=== PATIENT | male | born 1975 | race African-American/Black ===

== ENCOUNTER 2020-05-06 14:13 | Emergency (ER) | payer OTHER, SELFPAY ==
[2020-05-06] VITALS (12 sets, daily range): BP systolic 154–177; BP diastolic 82–96; PULSE 74–102; RESP 18–33; TEMP 36.6; O2SAT 97–100; BMI 25.8
--- NOTE | 2020-05-06 14:48 | DI.CT.S_ITS ---
PROCEDURE: CT ANGIO HEAD AND NECK INDICATIONS: Headache/syncope TECHNIQUE: Pre-contrast 4.5 mm thick sections acquired from the foramen magnum to the vertex. After the administration of intravenous contrast, 1 mm thick sections acquired from the aortic arch through the [place] of [place]. Post-contrast 4.5 mm thick sections then re-acquired from the foramen magnum to the vertex. 3-dimensional aissttl-rcjsgmjod-miukosibij (MIP) and/or volume rendering reformats were acquired of the central intracranial vasculature and neck separately. COMPARISON: [facility], CT, CT CERVICAL SPINE WO CON, 05/06/2020, 15:28. FINDINGS: Image quality: Excellent. BRAIN: CSF spaces: Ventricles are normal in size and shape. Basal cisterns are patent. No extra-axial fluid collections. Brain: No midline shift. No intracranial bleeds or masses. Arnold-white matter interface appears intact. Skull and face: Calvarium and facial bones appear intact, without suspicious lesions. Orbits appear normal. Sinuses: There is moderate mucosal thickening seen involving the left maxillary sinus. Mild mucosal thickening is seen elsewhere within the paranasal sinuses. No abnormal fluid is seen within the mastoid air cells. HEAD CT ANGIOGRAPHY: Anterior circulation: Premature atherosclerotic calcification can be seen involving the intracranial internal carotid arteries. No [place], hemodynamically significant stenosis is seen, however. The flow within the paired anterior cerebral arteries is normal and symmetric. The flow within the middle cerebral arteries is normal and symmetric. The anterior communicating artery is seen. No aneurysms are seen. Posterior circulation: Visualized portions of the vertebral arteries demonstrate normal caliber, and join to form a normal appearing basilar artery. Flow within the posterior cerebral arteries is normal and symmetric. No aneurysms are seen. NECK CT ANGIOGRAPHY: Carotid system: The great vessels demonstrate a conventional anatomy as they arise from the aortic arch. The origins of the common carotid arteries appear patent. The common carotid arteries demonstrate normal caliber and courses. The bifurcation regions demonstrate premature atherosclerotic calcification. There is approximate 50% narrowing seen involving both proximal internal carotid arteries. Posterior circulation: The origins of the vertebral arteries both appear widely patent. The more superior extracranial portions of both vertebral arteries also demonstrate normal courses and calibers. They join to form a normal appearing basilar artery. Soft tissues: Visualized neck soft tissues demonstrate no suspicious abnormalities. Emphysematous changes are seen at the lung apices, subpleural bleb formation. Bones: No suspicious bony lesions. Visualized cervical spine appears normally aligned. IMPRESSION: No significant intracranial arterial abnormality is seen. Approximately 50% narrowing seen involving both proximal internal carotid arteries. Premature atherosclerotic calcification is seen. Pulmonary emphysema, with subpleural bleb formation. Any quantitative measurements of stenosis were performed using NASCET criteria. Dictated by: Mushtaq Middleton M.D. on 05/06/2020 at 15:03 Approved by: Mushtaq Middleton M.D. on 05/06/2020 at 15:07
--- NOTE | 2020-05-06 14:49 | DI.CT.S_ITS ---
PROCEDURE: CT CERVICAL SPINE WO CON INDICATIONS: Headache/syncope TECHNIQUE: Noncontrast 3 mm thick sections acquired from the skull base to the T4 level. Sagittal and coronal reformats were then constructed. For radiation dose reduction, the following was used: automated exposure control, adjustment of mA and/or kV according to patient size. COMPARISON: None. FINDINGS: Image quality: Excellent. Bones: No fractures or dislocations. Mild degenerative disc disease at C5-C6. Scattered facet arthropathy, most pronounced at C2-C3 on the left. Visualized superior ribs are intact. Soft tissues: Prevertebral soft tissues are normal in thickness. No paravertebral hematomas. No apical pneumothoraces. Bilateral lung cysts in apices. Maxillary sinus mucosal thickening bilaterally, left greater than right. Bilateral carotid artery calcifications consistent with atherosclerosis. IMPRESSION: 1. No acute osseous abnormalities in cervical spine. 2. Degenerative changes. 3. Bilateral maxillary sinus mucosal thickening. 4. Carotid artery atherosclerosis bilaterally. Dictated by: Maricruz Wilks M.D. on 05/06/2020 at 16:00 Approved by: Maricruz Wilks M.D. on 05/06/2020 at 16:04
--- NOTE | 2020-05-06 14:52 | ED.SYNCOPE ---
HPI - Syncope General Chief Complaint: Syncope Stated Complaint: syncope poss seizure Time Seen by Provider: 05/06/20 14:16 Source: patient and EMS Mode of arrival: Ambulatory Limitations: no limitations History of Present Illness HPI narrative: [place] episode possible seizure. Witnessed by his friends. Patient states he was sitting on a rock clicking and is fishing pole and saw a red dot going across his field of vision followed by headache. Patient denies denies any chest pain palpitations numbness tingling or weakness prior to event. Brief syncopal episode patient was observed to be confused per EMS on their arrival. However now is awake alert oriented x3. Does not recall of the syncopal event. Denies any injury. Complains of continued headache. Worst of life. Addendum May 07, 2020 at 8:03 a.m., it is not worst of life headache. Also has nausea. No prior history of seizures or brain aneurysm or tumor. There is a family history of seizures in his brother when he was younger. Denies any drugs or alcohol. Does not have a family doctor. Accu-Chek per EMS was 129 Related Data Home Medications Medication Instructions Recorded Confirmed No Known Home Medications 05/06/20 05/06/20 Allergies Allergy/AdvReac Type Severity Reaction Status Date / Time No Known Drug Allergies Allergy Verified 05/06/20 14:41 Review of Systems Review of Systems Narrative: GENERAL: Denies chills, fatigue, malaise, fever, sweats. HEENT: Denies sinus pain, ear pain, sore throat, difficulty swallowing, dizziness. RESPIRATORY: Denies dyspnea, cough, wheezing, hemoptysis, sputum. CARDIOVASCULAR: Denies chest pain, palpitations, orthopnea, edema, GASTROINTESTINAL: Denies nausea, vomiting, abdominal pain, diarrhea, constipation, melena. : Denies dysuria, frequency, incontinence, hematuria, urinary retention. MUSCULOSKELETAL: denies weakness, joint pain, or bony pain SKIN: Denies rash, skin lesions, or other NEUROLOGIC: Complains of headache. Possible seizure. PSYCHIATRIC: No concerning psychosocial issues. ROS Unobtainable: All systems reviewed & are unremarkable except as noted in HPI and below Patient History Social History Smoking Status: Current every day smoker Smoking Status: Current every day smoker alcohol intake frequency: holidays/special occasions only Substance Use Type: does not use Exam Narrative Exam Narrative: GENERAL: patient appears stated age. Well-nourished, well-developed patient, in no distress, not toxic HEAD: Atraumatic. Normocephalic. No scalp tenderness or skin injury seen. EYES: Pupils equal round and reactive. Extraocular motions intact. No scleral icterus. No injection or drainage. ENT: Nose without bleeding, purulent drainage. Throat without erythema, tonsillar hypertrophy or exudate. Airway patent. NECK: Trachea midline. Non tender no midline tenderness or step-off. CARDIOVASCULAR: Regular rate and rhythm without murmurs, gallops, or rubs. RESPIRATORY: Clear to auscultation. Breath sounds equal bilaterally. No wheezes, rales, or rhonchi. GASTROINTESTINAL: Abdomen soft, non-tender, nondistended. EXTREMITIES: No edema or joint tenderness. BACK: Nontender without deformity or crepitance. No flank tenderness. NEURO: AOx3. Clear speech or facial droop light touch intact to bilateral face hands and legs. Strong equal superintendent transmission. SKIN: No rash or erythema of visible areas PSYCH: No acute distress. Not anxious. She is cooperative. Initial Vital Signs Initial Vital Signs: Vital Signs Pulse Rate 99 H 05/06/20 14:18 Respiratory Rate 18 05/06/20 14:18 Pulse Oximetry 99 05/06/20 14:18 Course Course Course Narrative: Friend is at bedside at this time. 1654. He witnessed event. Patient was staring off into the distance, started shaking his arms bilaterally and his friend ran up and caught him before falling. Event lasted about 20 seconds. Decision to Admit Date: 05/06/20 Decision to Admit time: 16:55 Orders Ordered: Discontinued Medications Acetaminophen (Tylenol) 650 mg PO NOW ONE Stop: 05/06/20 14:56 Last Admin: 05/06/20 15:09 Dose: 650 mg Documented by: JALIL Sodium Chloride (Normal Saline 0.9%) 1,000 mls @ 1,000 mls/hr IV BOLUS PRN PRN Reason: Fluid replacement Last Infusion: 05/06/20 15:10 Dose: 0 mls/hr Documented by: Admin: 05/06/20 15:10 Dose: 1,000 mls/hr Documented by: JALIL Ondansetron HCl (Zofran) 4 mg IV NOW ONE Stop: 05/06/20 14:56 Last Admin: 05/06/20 15:09 Dose: 4 mg Documented by: JALIL Reevaluation(s) Reevaluation #1: Patient awake alert oriented. No new issues or events. Time: 17:51 Consultations Consultation #1: Spoke with [facility], Dr. Hoffmann, patient is going to be arrange to be taken to [facility] in [place] at their request Time: 17:39 Vital Signs Vital signs: Vital Signs - 8 hr 05/06/20 14:18 05/06/20 14:30 05/06/20 14:38 Temperature 97.9 F Pulse Rate 99 H 97 H 99 H Respiratory Rate 18 21 18 Blood Pressure 154/87 H Pulse Oximetry 99 97 98 05/06/20 15:30 05/06/20 16:48 05/06/20 17:00 Temperature Pulse Rate 82 80 79 Respiratory Rate 25 H 23 Blood Pressure Pulse Oximetry 99 99 MDM - Syncope Lab Data Result diagrams: 05/06/20 14:53 05/06/20 15:07 Labs: Lab Results 05/06/20 05/06/20 05/06/20 Range/Units 14:53 15:07 15:07 WBC 11.7 H (4.5-11.0) X10^3/uL RBC 4.39 L (4.5-5.9) X10^6/uL Hgb 14.4 (13.5-17.5) g/dL Hct 42.4 (41-53) % MCV 96.6 (80-100) fL MCH 32.8 (26-34) PG MCHC 33.9 (30-36) % RDW 15.4 H (11.6-14.8) % Plt Count 248 (150-400) X10^3/uL Neut % (Auto) 72.9 (50-75) % Lymph % (Auto) 16.5 L (25-40) % [place] % (Auto) 9.5 (3-14) % Eos % (Auto) 0.1 L (2-4) % Baso % (Auto) 1.0 (0-2) % Neut # (Auto) 8500 H (8014-3401) /uL Lymph # (Auto) 1900 (2722-8664) /uL [place] # (Auto) 1100 H (0-900) /uL Eos # (Auto) 0 (0-450) /uL Baso # (Auto) 100 (0-100) /uL Sodium 135 L (137-145) mmol/L Potassium 4.4 (3.4-5.1) mmol/L Chloride 97 L (98-107) mmol/L Carbon Dioxide 27 (22-32) mmol/L BUN 4 L (9-20) mg/dL Creatinine 0.53 L (0.66-1.25) mg/dL Estimated GFR > 60.0 (>60) mL/min BUN/Creatinine Ratio 7.5 (6-22) Glucose 138 H (70-100) mg/dL Lactate 4.3 H* (0.7-2.1) mmol/L Calcium 9.6 (8.4-10.2) mg/dL Total Bilirubin 1.4 H (0.2-1.3) mg/dL AST 195 H (17-59) IU/L Alkaline Phosphatase 248 H (38-126) U/L Total Creatine Kinase 203 H (55-170) U/L CK-MB (CK-2) 0.76 (<2.37) ng/mL CK-MB (CK-2) Rel Index 0.4 L (1.5-5.0) % Troponin I < 0.012 (0.01-0.034) ng/mL Total Protein 8.5 H (6.3-8.2) g/dL Albumin 4.6 (3.5-5.0) g/dL Globulin 3.9 (1.7-4.1) g/dL Albumin/Globulin Ratio 1.2 (1.0-2.8) Urine RBC (0-5/HPF) Urine WBC (0-5/HPF) Ur Squamous Epith Cells (0-5/HPF) Amorphous Sediment Urine Bacteria (None) Urine Mucus (Negative) Urine Sperm Ur Culture Indicated? U Opiates 300ng/mL cut (Negative) Ur Oxycodone Screen (Negative) Urine Methadone Screen (Negative) Ur Barbiturates Screen (Negative) U Tricyclic Antidepress (Negative) Ur Phencyclidine Scrn (Negative) Ur Amphetamines Screen (Negative) U Methamphetamines Scrn (Negative) Ur MDMA Scrn (Ecstasy) (Negative) U Benzodiazepines Scrn (Negative) Urine Cocaine Screen (Negative) U Marijuana (THC) Screen (Negative) 05/06/20 05/06/20 05/06/20 Range/Units 15:25 15:25 17:14 WBC (4.5-11.0) X10^3/uL RBC (4.5-5.9) X10^6/uL Hgb (13.5-17.5) g/dL Hct (41-53) % MCV (80-100) fL MCH (26-34) PG MCHC (30-36) % RDW (11.6-14.8) % Plt Count (150-400) X10^3/uL Neut % (Auto) (50-75) % Lymph % (Auto) (25-40) % [place] % (Auto) (3-14) % Eos % (Auto) (2-4) % Baso % (Auto) (0-2) % Neut # (Auto) (8985-1764) /uL Lymph # (Auto) (3923-1881) /uL [place] # (Auto) (0-900) /uL Eos # (Auto) (0-450) /uL Baso # (Auto) (0-100) /uL Sodium (137-145) mmol/L Potassium (3.4-5.1) mmol/L Chloride (98-107) mmol/L Carbon Dioxide (22-32) mmol/L BUN (9-20) mg/dL Creatinine (0.66-1.25) mg/dL Estimated GFR (>60) mL/min BUN/Creatinine Ratio (6-22) Glucose (70-100) mg/dL Lactate 1.4 (0.7-2.1) mmol/L Calcium (8.4-10.2) mg/dL Total Bilirubin (0.2-1.3) mg/dL AST (17-59) IU/L Alkaline Phosphatase (38-126) U/L Total Creatine Kinase (55-170) U/L CK-MB (CK-2) (<2.37) ng/mL CK-MB (CK-2) Rel Index (1.5-5.0) % Troponin I (0.01-0.034) ng/mL Total Protein (6.3-8.2) g/dL Albumin (3.5-5.0) g/dL Globulin (1.7-4.1) g/dL Albumin/Globulin Ratio (1.0-2.8) Urine RBC 0-1/hpf (0-5/HPF) Urine WBC 10-30/hpf H (0-5/HPF) Ur Squamous Epith Cells 0-1 /hpf (0-5/HPF) Amorphous Sediment 1+ Urine Bacteria Few (2-10) H (None) Urine Mucus 1+ H (Negative) Urine Sperm Few nonmotil Ur Culture Indicated? Specimen cultured U Opiates 300ng/mL cut Negative (Negative) Ur Oxycodone Screen Negative (Negative) Urine Methadone Screen Negative (Negative) Ur Barbiturates Screen Negative (Negative) U Tricyclic Antidepress Negative (Negative) Ur Phencyclidine Scrn Negative (Negative) Ur Amphetamines Screen Negative (Negative) U Methamphetamines Scrn Negative (Negative) Ur MDMA Scrn (Ecstasy) Negative (Negative) U Benzodiazepines Scrn Negative (Negative) Urine Cocaine Screen Negative (Negative) U Marijuana (THC) Screen Negative (Negative) Point of Care Testing Glucose POC 129 Urine Dip Bedside Urine Glucose Negative Bedside Urine Bilirubin - Negative Bedside Urine Ketone +/- 5 Urine Specific [place] 1.015 Bedside Urine Occult Blood +/- Bedside Urine pH 7.5 Bedside Urine Protein ++ 100 Bedside Urine Urobilinogen - Negative Bedside Urine Nitrite - Negative Bedside Urine Leukocytes - Negative Esterase Imaging Data CT head/CTA head and neck: Radiologist's Impression: [place] [address] CT Scan Report Signed Patient: Anson Kern LMR#: [id number] : 1975Acct:[id number] Age/Sex: 45 / MDate of Service: 05/06/20 Loc: ED Accession Number: [id number] Procedure: CT angio head and neck Ordering Provider: Ravinder Parham MD PROCEDURE: CT ANGIO HEAD AND NECK INDICATIONS: Headache/syncope TECHNIQUE: Pre-contrast 4.5 mm thick sections acquired from the foramen magnum to the vertex. After the administration of intravenous contrast, 1 mm thick sections acquired from the aortic arch through the [place] of [place]. Post-contrast 4.5 mm thick sections then re-acquired from the foramen magnum to the vertex. 3-dimensional pyoxemf-ucqxgjbuk-qswgcoslym (MIP) and/or volume rendering reformats were acquired of the central intracranial vasculature and neck separately. COMPARISON: [facility], CT, CT CERVICAL SPINE WO CON, 05/06/2020, 15:28. FINDINGS: Image quality: Excellent. BRAIN: CSF spaces: Ventricles are normal in size and shape. Basal cisterns are patent. No extra-axial fluid collections. Brain: No midline shift. No intracranial bleeds or masses. Arnold-white matter interface appears intact. Skull and face: Calvarium and facial bones appear intact, without suspicious lesions. Orbits appear normal. Sinuses: There is moderate mucosal thickening seen involving the left maxillary sinus. Mild mucosal thickening is seen elsewhere within the paranasal sinuses. No abnormal fluid is seen within the mastoid air cells. HEAD CT ANGIOGRAPHY: Anterior circulation: Premature atherosclerotic calcification can be seen involving the intracranial internal carotid arteries. No [place], hemodynamically significant stenosis is seen, however. The flow within the paired anterior cerebral arteries is normal and symmetric. The flow within the middle cerebral arteries is normal and symmetric. The anterior communicating artery is seen. No aneurysms are seen. Posterior circulation: Visualized portions of the vertebral arteries demonstrate normal caliber, and join to form a normal appearing basilar artery. Flow within the posterior cerebral arteries is normal and symmetric. No aneurysms are seen. NECK CT ANGIOGRAPHY: Carotid system: The great vessels demonstrate a conventional anatomy as they arise from the aortic arch. The origins of the common carotid arteries appear patent. The common carotid arteries demonstrate normal caliber and courses. The bifurcation regions demonstrate premature atherosclerotic calcification. There is approximate 50% narrowing seen involving both proximal internal carotid arteries. Posterior circulation: The origins of the vertebral arteries both appear widely patent. The more superior extracranial portions of both vertebral arteries also demonstrate normal courses and calibers. They join to form a normal appearing basilar artery. Soft tissues: Visualized neck soft tissues demonstrate no suspicious abnormalities. Emphysematous changes are seen at the lung apices, subpleural bleb formation. Bones: No suspicious bony lesions. Visualized cervical spine appears normally aligned. IMPRESSION: No significant intracranial arterial abnormality is seen. Approximately 50% narrowing seen involving both proximal internal carotid arteries. Premature atherosclerotic calcification is seen. Pulmonary emphysema, with subpleural bleb formation. Any quantitative measurements of stenosis were performed using NASCET criteria. Dictated by: Mushtaq Middleton M.D. on 05/06/2020 at 15:03 Approved by: Mushtaq Middleton M.D. on 05/06/2020 at 15:07 CT - cervical spine: Radiologist's Impression: [address] [address] [address] Scan Report Signed Patient: Anson Kern LMR#: [id number] : 1975Acct:[id number] Age/Sex: 45 / MDate of Service: 05/06/20 Loc: ED Accession Number: [id number] Procedure: CT cervical spine wo con Ordering Provider: Ravinder Parham MD PROCEDURE: CT CERVICAL SPINE WO CON INDICATIONS: Headache/syncope TECHNIQUE: Noncontrast 3 mm thick sections acquired from the skull base to the T4 level. Sagittal and coronal reformats were then constructed. For radiation dose reduction, the following was used: automated exposure control, adjustment of mA and/or kV according to patient size. COMPARISON: None. FINDINGS: Image quality: Excellent. Bones: No fractures or dislocations. Mild degenerative disc disease at C5-C6. Scattered facet arthropathy, most pronounced at C2-C3 on the left. Visualized superior ribs are intact. Soft tissues: Prevertebral soft tissues are normal in thickness. No paravertebral hematomas. No apical pneumothoraces. Bilateral lung cysts in apices. Maxillary sinus mucosal thickening bilaterally, left greater than right. Bilateral carotid artery calcifications consistent with atherosclerosis. IMPRESSION: 1. No acute osseous abnormalities in cervical spine. 2. Degenerative changes. 3. Bilateral maxillary sinus mucosal thickening. 4. Carotid artery atherosclerosis bilaterally. Dictated by: Maricruz Wilks M.D. on 05/06/2020 at 16:00 Approved by: Maricruz Wilks M.D. on 05/06/2020 at 16:04 ECG Data Attestation: I personally reviewed and interpreted this ECG as follows: Interpretation: Normal sinus rhythm, ventricular rate 96, no ST elevation or depression MDM Narrative Medical decision making narrative: Patient is from [place]. Patient will need Neurology and Cardiology evaluation for seizures/syncope. We do not have neurology services here. He desires to be admitted to a hospital in [facility]. Lactic acid noted, nonspecific. No recent illness. No cough cold congestion fever chills nausea vomiting diarrhea. At this time no cultures indicated. No antibiotics. White count nonspecific. May be due to event of the syncopal episode. Addendum May 07, 2020 at 8:03 a.m.. Notes were corrected in HPI. It is not worst of life headache. Again it is not worst headache. Discussion with Dr. Hoffmann, should read that patient will be arranged to be transferred to [facility], I did speak with patient and he agreed with plan. It is in [place] Discharge Plan Departure Patient Disposition: [facility] Clinical Impression: Syncope Qualifiers: Syncope type: unspecified Qualified Code(s): R55 - Syncope and collapse Discharge Date/Time: 05/06/20 20:40 Prescriptions: No Action No Known Home Medications RF: 0
[2020-05-06 14:58] LABS: Add Manual Diff / Slide Review NO; Basophils Absolute Auto 100 /uL (0-100); Eosinophils Absolute Auto 0 /uL (0-450); Eosinophils Percent Auto 0.1 % (2-4); Hematocrit 42.4 % (41-53); Hemoglobin 14.4 g/dL (13.5-17.5); Lymphocytes Absolute Auto 1900 /uL (1100-4500); Lymphocytes Percent Auto 16.5 % (25-40); Mean Corpuscular HGB Conc 33.9 % (30-36); Mean Corpuscular Hemoglobin 32.8 PG (26-34); Mean Corpuscular Volume 96.6 fL (80-100); Monocytes Absolute Auto 1100 /uL (0-900); Monocytes Percent Auto 9.5 % (3-14); Neutrophils Absolute Auto 8500 /uL (1500-7000); Neutrophils Percent Auto 72.9 % (50-75); Platelet Count 248 X10^3/uL (150-400); Red Blood Cell Count 4.39 X10^6/uL (4.5-5.9); Red Cell Distribution Width 15.4 % (11.6-14.8); White Blood Cell Count 11.7 X10^3/uL (4.5-11.0)
[2020-05-06] MEDS: ACETAMINOPHEN 325 MG TABLET 650 MG PO (15:09)
[2020-05-06] MEDS: ONDANSETRON 4 MG/2 ML INJ IV (15:09)
[2020-05-06] MEDS: SODIUM CHLORIDE 0.9% 1,000 ML 1000 ML IV (15:10)
[2020-05-06 15:31] LABS: Albumin 4.6 g/dL (3.5-5.0); Albumin Globulin Ratio 1.2 (1.0-2.8); Alkaline Phosphatase 248 U/L (38-126); Aspartate Aminotransferase 195 IU/L (17-59); BUN Creatinine Ratio 7.5 (6-22); Bilirubin Total 1.4 mg/dL (0.2-1.3); Blood Urea Nitrogen 4 mg/dL (9-20); Calcium 9.6 mg/dL (8.4-10.2); Carbon Dioxide 27 mmol/L (22-32); Chloride 97 mmol/L (98-107); Creatine Kinase 203 U/L (55-170); Estimated Glomerular Filt Rate > 60.0 mL/min (>60); Globulin 3.9 g/dL (1.7-4.1); Glucose 138 mg/dL (70-100); HEMOLYSIS < 15 (0-50); Potassium 4.4 mmol/L (3.4-5.1); Sodium 135 mmol/L (137-145); Total Protein 8.5 g/dL (6.3-8.2)
[2020-05-06 15:42] LABS: Troponin I < 0.012 ng/mL (0.01-0.034)
[2020-05-06 15:46] LABS: CKMB % Relative Index 0.4 % (1.5-5.0); Creatine Kinase MB 0.76 ng/mL (<2.37); Lactate (Lactic Acid) 4.3 mmol/L (0.7-2.1)
[2020-05-06 15:47] LABS: UR Morphine/Opiate cutoff 300 Negative (Negative); Ur Creatinine Normal (Normal); Ur Specific Gravity Normal (Normal); Urine Amphetamines Negative (Negative); Urine Barbiturates Negative (Negative); Urine Benzodiazepines Negative (Negative); Urine Cocaine Negative (Negative); Urine MDMA Negative (Negative); Urine Methadone Negative (Negative); Urine Methamphetamines Negative (Negative); Urine Oxycodone Negative (Negative); Urine Phencyclidine Negative (Negative); Urine Tetrahydrocannabinol Negative (Negative); Urine Tricyclic Antidepressant Negative (Negative); Urine pH Normal (Normal)
[2020-05-06 15:49] LABS: RBC Urine 0-1/HPF (0-5/HPF); WBC Urine 10-30/HPF (0-5/HPF)
[2020-05-06 15:50] LABS: Amorphous Sediment Urine 1+; Bacteria Urine Few (2-10); Culture Indicated Urine Specimen Cultured; Mucus Urine 1+ (Negative); Sperm Urine FEW NONMOTIL; Squamous Epithelial Cell Urine 0-1 /HPF (0-5/HPF)
[2020-05-06 17:14] LABS: Reflexed Lactate in 2 Hours Y
[2020-05-06 18:43] LABS: Lactate 2HR (Lactic Acid Rflx) 1.4 mmol/L (0.7-2.1)
--- NOTE | 2020-05-06 18:50 | PC.NURSE ---
Pt brought dinner tray.
--- NOTE | 2020-05-06 20:45 | PC.NURSE ---
Left message for RN at [facility] to give report. RN to call back.
[2020-05-07 14:36] LABS: Alanine Aminotransferase 112 IU/L (<50)
== END 2020-05-06 20:40 | disposition short-term general hospital (02) ==
PROVIDERS: Emergency Provider Emergency Medicine
DX: R55 Syncope and collapse (principal); R51 Headache; R07.9 Chest pain, unspecified
CPT/HCPCS: 36415; 70496; 70498; 72125; 80053; 80305; 81003; 81015; 82550; 82553; 83605; 84484; 85025; 87086; 93005; 93010; 96374; 99284; J2405; Q9967